=== PATIENT | female | born 1980 | race Caucasian/White ===

== ENCOUNTER 2017-12-06 22:03 | Emergency (ER) | payer OTHER ==
[~2017-12-06] VITALS: Ht 160 cm; Wt 83.9 kg
[2017-12-06 22:07] VITALS: BP_SYST 110
--- NOTE | 2017-12-06 23:41 | NUR ---
Patient to ER bed 7 to gown for evaluation. Side rails up.
[2017-12-06 23:42] LABS: BILIRUBIN,URINE NEGATIVE (NEGATIVE); BLOOD, URINE 3+ (NEGATIVE); CLARITY/URINE CLOUDY (CLEAR); COLOR,URINE YELLOW (YELLOW); GLUCOSE,URINE NEGATIVE (NEGATIVE); KETONES,URINE NEGATIVE (NEGATIVE); LEUKOCYTE ESTERASE ,URINE 1+ (NEGATIVE); NITRITE, URINE NEGATIVE (NEGATIVE); PROTEIN URINE TRACE (NEGATIVE)
[2017-12-06 23:49] LABS: BACTERIA,URINE MANY /HPF (None Seen)
[2017-12-06 23:50] LABS: MUCUS,URINE 1+ /LPF (None Seen); RBC,URINE 20-50 /HPF (0-3)
--- NOTE | 2017-12-06 23:55 | NUR ---
Patient to ER C/O vaginal spotting and mild abdominal cramping since yesterday. Patient states that she was spotting yesterday but it went away. Patient is been taking bactrim for UTI. Denies dizziness, , LMP 10/24/17, AAOx4, unlabored breathing, no signs of acute distress.
--- NOTE | 2017-12-07 00:11 | NUR ---
ER MD Leblanc at bedside discussing plan of care with patient
--- NOTE | 2017-12-07 00:40 | NUR ---
LAB at bedside for blood draw. Patient identified x2
[2017-12-07 01:04] LABS: BASOPHILS # (AUTO) 0.1 K/uL (0.0-0.2); BASOPHILS % (AUTO) 0.7 % (0.0-2.0); EOSINOPHILS # (AUTO) 0.2 K/uL (0.0-0.4); EOSINOPHILS % (AUTO) 2.3 % (0.0-4.0); HEMATOCRIT 35.3 % (36-48); HEMOGLOBIN 12.4 g/dL (12.0-16.0); LYMPHOCYTES # (AUTO) 2.9 K/uL (1.0-5.5); LYMPHOCYTES % (AUTO) 37.7 % (20.5-51.5); MEAN CORPUSCULAR HEMOGLOBIN 32 pg (27-31); MEAN CORPUSCULAR HGB CONC 35 % (32-36); MEAN CORPUSCULAR VOLUME 92 fL (79.0-98.0); MONOCYTES # (AUTO) 0.5 K/uL (0.0-1.0); NEUTROPHILS # (AUTO) 4.1 K/uL (1.8-7.7); NEUTROPHILS % (AUTO) 52.3 % (40.0-70.0); PLATELET COUNT (AUTO) 366 K/uL (130-430); RED BLOOD CELL COUNT(AUTO) 3.84 MIL/uL (4.2-6.2); WHITE BLOOD COUNT (AUTO) 7.8 K/uL (4.8-10.8)
[2017-12-07 01:12] LABS: CALCIUM 8.3 mg/dL (8.4-11.0); CREATININE 0.61 mg/dL (0.55-1.30); POTASSIUM 3.9 mmol/L (3.5-5.1)
[2017-12-07 01:25] LABS: ALBUMIN 3.8 g/dL (3.4-4.8); TOTAL BILIRUBIN 0.4 mg/dL (0.0-1.0)
[2017-12-07] MEDS ORDERED: cefTRIAXone 1 GM IVPB PREMIX 50 ML IV ONE (01:30)
--- NOTE | 2017-12-07 01:37 | NUR ---
# 22 gauge angiocath placed to right ac. Use of asceptic technique. Opsite placed over site. Blood return noted. Blood for lab drawn from site (lactic & cultures). Flushed with 10 cc of normal saline. No evidence of infiltration noted. Patient tolerated well.
--- NOTE | 2017-12-07 02:27 | NUR ---
Patient calm on gurney. Denies pain. No signs of acute distress. Awaiting disposition.
[2017-12-07 03:35] VITALS: BP_SYST 116
--- NOTE | 2017-12-07 03:35 | NUR ---
Patient given written and verbal discharge instructions and verbalizes understanding. ER MD Leblanc discussed with patient the results and treatment provided. Patient in stable condition. ID arm band removed. IV catheter removed intact and dressing applied, no active bleeding. Rx of tylenol given. Patient educated on pain management and to follow up with PMD. Pain Scale 0/10. Opportunity for questions provided and answered. Medication side effect fact sheet provided.
== END 2017-12-07 03:35 | disposition home or self-care (01) ==
LOC: SED 22:03
DX: O20.0 Threatened abortion (principal); O23.41 Unspecified infection of urinary tract in pregnancy, first trimester; Z3A.01 Less than 8 weeks gestation of pregnancy
CPT/HCPCS: 36415; 76801; 76817; 80053; 81000; 81025; 84702; 85025; 86901; 87040; 87086; 96365; 99285; J0696